=== PATIENT | female | born 1985 | race Caucasian/White ===

== ENCOUNTER 2017-02-04 06:49 | Day surgery (SDC) | payer OTHER ==
[~2017-02-04] VITALS: Ht 175.3 cm; Wt 90.5 kg
[~2017-02-04 06:49] MED LIST: ACEDIPPM; ALBU90OI INH; AMOX500 PO; DIPH50 PO; DOXY100 PO; HYDACE5 PO; IBUP200; IBUP800 PO; METR500 PO; MULVITMINE PO; OXYACE5T PO
--- NOTE | 2017-02-04 07:45 | NUR ---
02/04/17 0745 Tanisha Pugh 1ST IV ATTEMPT IN [facility] DID NOT FLASH. 2ND ATTEMPT SUCCESSFUL IN [facility].
--- NOTE | 2017-02-04 09:32 | NUR ---
02/04/17 0932 Pau Richardson PT TRANSFERRED TO RECLINER. PT TOLERATING APPLE JUICE AND CRACKERS. AT BEDSIDE. SONDRA RYDER APPLIED ON WARM. VSS.
== END 2017-02-04 10:12 | disposition home or self-care (01) ==
LOC: ORSCSDS 06:49
PROVIDERS: Obstetrics & Gynecology
PROC: 0UBC7ZX Excision of Cervix, Via Natural or Artificial Opening, Diagnostic (ICD-10-PCS; principal; 2017-02-04 08:00)
DX: D06.9 Carcinoma in situ of cervix, unspecified (principal); N72 Inflammatory disease of cervix uteri
CPT/HCPCS: 88307; 88341; 88342; J0690; J1100; J1885; J2250; J2405; J3010; J7120

== ENCOUNTER → 2018-09-02 | Outpatient (CLI) | payer OTHER ==
[2018-09-05 13:06] LABS: HPV 16 Negative (Negative); HPV 18 Negative (Negative); HPV OTHER HR TYPES Negative (Negative)
== END ==
LOC: LAB 15:17 → LAB SHORT 15:17
PROVIDERS: Registered Nurse Community Health
DX: Z12.4 Encounter for screening for malignant neoplasm of cervix (principal)
CPT/HCPCS: 87624; G0123

== ENCOUNTER 2019-05-07 09:58 | Day surgery (SDC) | payer OTHER ==
[~2019-05-07] VITALS: Ht 172.7 cm; Wt 76.4 kg
[~2019-05-07 09:58] MED LIST changes: +Adipex-P37.5 MG; +TOPI25
--- NOTE | 2019-05-07 11:01 | NUR ---
05/07/19 1101 Ashley Boogie PRP DRAWN AND ANTICOAGULANT IS ADDED, DELIVERED TO OR AND SPUN.
--- NOTE | 2019-05-07 15:27 | NUR ---
05/07/19 1527 Jacklyn Holloway PT TRANSFERED INTO THE RECLINER WITH STAND BY ASSIST FROM RN. VSS. PT DENIES NAUSEA AND HAS TOLERATED PO FLUIDS AND SNACKS WELL. PT COMPLAINS OF PAIN 12/11. RN TREATED WITH IV PAIN MEDICATION AND ORAL PAIN MEDICATION ORDERED. SON AT CHAIRSIDE. CALL LIGHT IN REACH.
== END 2019-05-07 16:20 | disposition home or self-care (01) ==
LOC: ORSCSDS 09:58
PROVIDERS: Orthopaedic Surgery
PROC: 0MRP47Z Replacement of Left Knee Bursa and Ligament with Autologous Tissue Substitute, Percutaneous Endoscopic Approach (ICD-10-PCS; principal; 2019-05-07 11:15)
PROC: 0SQD4ZZ Repair Left Knee Joint, Percutaneous Endoscopic Approach (ICD-10-PCS; principal; 2019-05-07 11:15)
PROC: 0SBD4ZZ Excision of Left Knee Joint, Percutaneous Endoscopic Approach (ICD-10-PCS; principal; 2019-05-07 11:15)
DX: S83.512A Sprain of anterior cruciate ligament of left knee, initial encounter (principal); S83.242A Other tear of medial meniscus, current injury, left knee, initial encounter; S83.282A Other tear of lateral meniscus, current injury, left knee, initial encounter; M94.262 Chondromalacia, left knee; Z79.899 Other long term (current) drug therapy
CPT/HCPCS: A9270-GY; C1713; J0171; J0690; J1100; J1885; J2250; J2370; J2405; J2704; J2795; J3010; J7120

== ENCOUNTER 2019-06-03 13:56 | Day surgery (SDC) | payer OTHER ==
[~2019-06-03] VITALS: Ht 175.3 cm; Wt 72.4 kg
[2019-06-03] MEDS ORDERED: CIPR500 PO (14:15)
[2019-06-03] MEDS ORDERED: Norco 5-325 Ta1 EACH PO (14:16)
[2019-06-03] MEDS ORDERED: Vitamin D2000 UNIT PO (14:17)
[2019-06-03] MEDS ORDERED: ASCO500 PO (14:17)
--- NOTE | 2019-06-03 17:45 | NUR ---
06/03/19 1745 Andreas Tolbert PATIENT RECIEVED LIDOCAINE WITH EPINEPHRINE 1:100,[address] MEDINA.
--- NOTE | 2019-06-04 09:35 | NUR ---
RECIEVED CALL FROM PATIENT, STATES SHE BELIEVES THERE WAS AN ERROR ON PHARMACY END BECAUSE THEY DIDN'T RECIEVE ORDER FOR HER ANTIBIOTIC. (DISCHARGED APPROX 1900 06/03/2019 STATES SHE WAS SURE THE NURSE CALLED IT IN. FOUND RX FROM [facility] AND CALLED INTO [facility] [place] PER PT REQUEST, TO BE FILLED RIGHT AWAY.CALLED RX IN AT 0935 06/04/2019
== END 2019-06-03 22:37 | disposition home or self-care (01) ==
LOC: ORSCMMR 13:56
PROVIDERS: Orthopaedic Surgery
PROC: 0SBD4ZZ Excision of Left Knee Joint, Percutaneous Endoscopic Approach (ICD-10-PCS; principal; 2019-06-03 16:45)
DX: M25.462 Effusion, left knee (principal); S83.242D Other tear of medial meniscus, current injury, left knee, subsequent encounter
CPT/HCPCS: 87070; 87075; 87205; A9270-GY; J0171; J0690; J1100; J2250; J2405; J2704; J3010; J7120

== ENCOUNTER → 2019-12-23 | Outpatient (CLI) | payer OTHER ==
[~2019-12-23] MED LIST changes: +ASCO500 PO; +CIPR500 PO; +Norco 5-325 Ta1 EACH PO; +Vitamin D2000 UNIT PO
== END ==
LOC: LAB 18:58 → LAB SHORT 18:58
DX: N89.8 Other specified noninflammatory disorders of vagina (principal)
CPT/HCPCS: 87070; 87205; 87529

== ENCOUNTER → 2021-04-27 | Outpatient (CLI) | payer OTHER ==
[2021-04-28 16:09] LABS: HPV 16 Negative (Negative); HPV 18 Negative (Negative); HPV OTHER HR TYPES Positive (Negative)
== END ==
LOC: LAB 12:38 → LAB SHORT 12:38
PROVIDERS: Registered Nurse Community Health
DX: Z12.4 Encounter for screening for malignant neoplasm of cervix (principal)
CPT/HCPCS: 87624; G0123

== ENCOUNTER → 2022-01-05 | Outpatient (CLI) | payer OTHER | END | disposition home or self-care (01) | LOC: LAB SHORT 16:04 → LAB 16:04 | DX: R30.0 Dysuria (principal) | CPT/HCPCS: 87086 ==

== ENCOUNTER 2022-03-15 03:55 | Emergency (ER) | payer OTHER ==
[~2022-03-15] VITALS: Ht 172.7 cm; Wt 79.4 kg
[2022-03-15 04:11] LABS: Source, Urine Clean Catch
[2022-03-15 04:32] LABS: BASOPHILS ABSOLUTE AUTO 0.03 K/mm3 (0.00-0.23); BASOPHILS PERCENT AUTO 0 % (0-2); EOSINOPHILS ABSOLUTE AUTO 0.03 K/mm3 (0.00-0.68); EOSINOPHILS PERCENT AUTO 0 % (0-6); Hematocrit 36.8 % (33.0-51.0); Hemoglobin 12.2 g/dL (11.5-16.0); IMMATURE GRAN ABSOLUTE AUTO 0.04 K/mm3 (0.00-0.10); IMMATURE GRAN PERCENT AUTO 0 % (0-1); LYMPHOCYTES ABSOLUTE AUTO 1.22 K/mm3 (0.84-5.20); LYMPHOCYTES PERCENT AUTO 12 % (21-46); MONOCYTES ABSOLUTE AUTO 0.65 K/mm3 (0.16-1.47); MONOCYTES PERCENT AUTO 7 % (4-13); Mean Corpuscular HGB 29.5 pg (26.0-34.0); Mean Corpuscular HGB Conc 33.2 g/dL (31.5-36.5); Mean Corpuscular Volume 89 fL (80-100); Mean Platelet Volume 10.2 fL (9.1-12.4); NEUTROPHILS ABSOLUTE AUTO 7.94 K/mm3 (1.96-9.15); NEUTROPHILS PERCENT AUTO 80 % (41-73); Platelet Count 179 K/mm3 (150-400); RDW Coefficient Variation 12.1 % (11.7-14.2); RDW Standard Deviation 39.3 fL (35.1-46.3); Red Blood Cell Count 4.14 M/mm3 (3.80-5.20); White Blood Cell Count 9.91 K/mm3 (4.00-11.30)
[2022-03-15 04:33] LABS: Appearance, Urine Turbid (Clear); Bilirubin, Urine Neg (Neg); Blood, Urine 5+ (Neg); Color, Urine Yellow (P-Yellow); Glucose Qualitative, Urine Neg (Neg); Ketones, Urine Neg (Neg); Leukocyte Esterase, Urine 3+ (Neg); Nitrite, Urine Pos (Neg); Protein, Urine 3+ (Neg); Specific Gravity, Urine 1.015 (1.003-1.022); Urobilinogen, Urine NORM (Normal)
[2022-03-15 04:39] LABS: Bacteria Mod /hpf; Squamous Epithelial Cells Rare /hpf (Few); White Blood Cells, Urine TNTC /hpf (0-5)
[2022-03-15 04:49] LABS: Albumin, Blood 3.1 g/dL (3.4-5.0); Bilirubin, Total 0.5 mg/dL (0.1-1.0); Bun/Creatinine Ratio 15.2 (12.0-20.0); Calcium, Blood 7.8 mg/dL (8.5-10.1); Creatinine, Blood 0.79 mg/dL (0.40-1.00); Globulin, Blood 3.2 g/dL (2.2-4.0); Potassium, Blood 3.9 mmol/L (3.5-5.5); Total Protein, Blood 6.3 g/dL (6.4-8.2)
[2022-03-15] MEDS ORDERED: CEFP200 PO (06:35)
[2022-03-15] MEDS ORDERED: Percocet 5-3251 EACH PO (06:43)
[2022-03-15] MEDS ORDERED: ONDA4ODT MM (06:43)
== END 2022-03-15 07:30 | disposition home or self-care (01) ==
LOC: ER 03:55
PROVIDERS: Emergency Medicine
DX: N12 Tubulo-interstitial nephritis, not specified as acute or chronic (principal); Z88.5 Allergy status to narcotic agent
CPT/HCPCS: 74176; 80053; 81001; 84703; 85025; J0696; J3010; J7030

== ENCOUNTER → 2022-06-20 | Outpatient (CLI) | payer OTHER ==
[~2022-06-20] MED LIST changes: +CEFP200 PO; +ONDA4ODT MM; +Percocet 5-3251 EACH PO
== END | disposition home or self-care (01) ==
LOC: LAB SHORT 14:55 → LAB 14:55
DX: N72 Inflammatory disease of cervix uteri (principal); R87.810 Cervical high risk human papillomavirus (HPV) DNA test positive
CPT/HCPCS: 88305

== ENCOUNTER → 2022-08-02 | Outpatient (CLI) | payer OTHER | END | disposition home or self-care (01) | LOC: LAB SHORT 12:55 → LAB 12:55 | DX: R35.0 Frequency of micturition (principal) | CPT/HCPCS: 87077; 87086; 87186 ==

== ENCOUNTER 2022-10-04 10:27 | Day surgery (SDC) | payer OTHER | END 2022-10-05 13:15 | disposition home or self-care (01) | LOC: ORSCMMR 10:27 → SURS 17:59 | PROC: 0UT7FZZ Resection of Bilateral Fallopian Tubes, Via Natural or Artificial Opening With Percutaneous Endoscopic Assistance (ICD-10-PCS; principal; 2022-10-04) | PROC: 0UT9FZZ Resection of Uterus, Via Natural or Artificial Opening With Percutaneous Endoscopic Assistance (ICD-10-PCS; principal; 2022-10-04) | PROC: 0U5F4ZZ Destruction of Cul-de-sac, Percutaneous Endoscopic Approach (ICD-10-PCS; principal; 2022-10-04) | PROC: 8E0W4CZ Robotic Assisted Procedure of Trunk Region, Percutaneous Endoscopic Approach (ICD-10-PCS; principal; 2022-10-04) | DX: N92.1 Excessive and frequent menstruation with irregular cycle (principal); R87.810 Cervical high risk human papillomavirus (HPV) DNA test positive; N93.8 Other specified abnormal uterine and vaginal bleeding; N94.6 Dysmenorrhea, unspecified; N83.291 Other ovarian cyst, right side; N80.30 Endometriosis of pelvic peritoneum, unspecified | CPT/HCPCS: 58571; 58662; S2900 ==

== ENCOUNTER → 2022-12-26 | Outpatient (CLI) | payer OTHER ==
[~2022-12-26] MED LIST changes: +DOCU100 PO; +DULCOLAX400 MG/5 M PO; +IBUP400 PO; +PROM25 PO; +SIME80CH PO
== END ==
LOC: LAB SHORT 17:00 → LAB 17:00
DX: R30.0 Dysuria (principal)
CPT/HCPCS: 87077; 87086; 87186

== ENCOUNTER → 2023-02-28 | Outpatient (CLI) | payer OTHER | LOC: LAB SHORT 11:54 → LAB 11:54 | DX: R30.0 Dysuria (principal) | CPT/HCPCS: 87077; 87086; 87186 ==

== ENCOUNTER → 2024-04-05 | Outpatient (CLI) | payer OTHER ==
[2024-04-05 14:16] LABS: BASOPHILS ABSOLUTE AUTO 0.03 K/mm3 (0.00-0.23); BASOPHILS PERCENT AUTO 1 % (0-2); EOSINOPHILS ABSOLUTE AUTO 0.09 K/mm3 (0.00-0.68); EOSINOPHILS PERCENT AUTO 2 % (0-6); Hematocrit 37.3 % (33.0-51.0); Hemoglobin 12.2 g/dL (11.5-16.0); IMMATURE GRAN ABSOLUTE AUTO 0.02 K/mm3 (0.00-0.10); IMMATURE GRAN PERCENT AUTO 0 % (0-1); LYMPHOCYTES ABSOLUTE AUTO 1.35 K/mm3 (0.84-5.20); LYMPHOCYTES PERCENT AUTO 26 % (21-46); MONOCYTES PERCENT AUTO 8 % (4-13); Mean Corpuscular HGB 28.8 pg (26.0-34.0); Mean Corpuscular HGB Conc 32.7 g/dL (31.5-36.5); Mean Corpuscular Volume 88 fL (80-100); Mean Platelet Volume 9.5 fL (9.1-12.4); NEUTROPHILS PERCENT AUTO 64 % (41-73); Platelet Count 211 K/mm3 (150-400); RDW Coefficient Variation 13.3 % (11.7-14.2); RDW Standard Deviation 42.5 fL (35.1-46.3); Red Blood Cell Count 4.24 M/mm3 (3.80-5.20); White Blood Cell Count 5.29 K/mm3 (4.00-11.30)
[2024-04-05 14:39] LABS: Albumin, Blood 3.8 g/dL (3.4-5.0); Albumin/Globulin Ratio 1.1 (0.8-1.8); Bilirubin, Total 0.4 mg/dL (0.1-1.0); Bun/Creatinine Ratio 16.1 (12.0-20.0); Calcium, Blood 9.2 mg/dL (8.5-10.1); Creatinine, Blood 0.87 mg/dL (0.40-1.00); Globulin, Blood 3.6 g/dL (2.2-4.0); Potassium, Blood 3.7 mmol/L (3.5-5.5); Thyroid Stimulating Hormone 0.694 uIU/mL (0.360-4.800); Total Protein, Blood 7.4 g/dL (6.4-8.2)
[2024-04-07 20:44] LABS: HSV 1 GLYCOPROTEIN G AB, IGG 47.6 IV (<=0.89); HSV 2 GLYCOPROTEIN G AB, IGG 2.91 IV (<=0.89)
== END | disposition home or self-care (01) ==
LOC: LAB SHORT 14:11 → LAB 14:11
PROVIDERS: Physician Assistant
DX: R53.83 Other fatigue (principal); R50.9 Fever, unspecified; R59.0 Localized enlarged lymph nodes
CPT/HCPCS: 80053; 84443; 85025; 86695; 86696

== ENCOUNTER → 2024-09-29 | Outpatient (CLI) | payer OTHER ==
[2024-09-29 19:44] LABS: Bacterial Vaginosis PCR Negative (NEGATIVE); Candida Group, PCR NOT DETECTED (NOT DETECT); Candida glabrata-krusei, PCR NOT DETECTED (NOT DETECT)
== END | disposition home or self-care (01) ==
LOC: LAB 17:21 → LAB SHORT 17:21
PROVIDERS: Nurse Practitioner Family
DX: N89.8 Other specified noninflammatory disorders of vagina (principal)
CPT/HCPCS: 81515

== ENCOUNTER → 2024-12-28 | Outpatient (CLI) | payer OTHER ==
[2024-12-28 11:42] LABS: Source, Urine Clean Catch
[2024-12-28 13:16] LABS: Bilirubin, Urine Neg (Neg); Color, Urine Yellow (P-Yellow); Glucose Qualitative, Urine Neg (Neg); Ketones, Urine Neg (Neg); Leukocyte Esterase, Urine Neg (Neg); Protein, Urine Neg (Neg); Specific Gravity, Urine 1.015 (1.003-1.022); Urobilinogen, Urine NORM (Normal)
[2024-12-28 13:35] LABS: Red Blood Cells, Urine 0-2 /hpf (0-2)
== END ==
LOC: LAB 11:40 → LAB SHORT 11:40
PROVIDERS: Nurse Practitioner Family
DX: R30.0 Dysuria (principal)
CPT/HCPCS: 81001; 87077; 87086; 87186